=== PATIENT | male | born 2000 | race Caucasian/White ===

== ENCOUNTER 2021-05-26 18:41 | Emergency (ER) | payer OTHER ==
[~2021-05-26] VITALS: Ht 185.4 cm; Wt 77.1 kg
[2021-05-26 18:55] VITALS: BP 129/93
[2021-05-26] MEDS ORDERED: IBUP-1780 PO (19:21)
[2021-05-26] MEDS ORDERED: FAMO-119 PO (19:21)
--- NOTE | 2021-05-26 19:21 | ED Upper Extremity ---
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 He had UCL surgery in November and currently is not pitching. He continues to have ulnar nerve issues where he gets pain and xqsi-uwk-nveolig down his arm. Is supposed to have surgery where they move his ulnar nerve because they believe is entrapped. He believes the surgery will be in the next couple weeks scheduled. He was bending his arm and felt a pop for his ulnar nerve moved and he had immediate the needles down his arm. Presented to an urgent care and they referred him here. He is denying any other acute complaints. Has not had any medications today. Allergies and Home Medications Allergies Coded Allergies: No Known Drug Allergies (Unverified , 05/26/21) Patient Home Medication List Home Medication List Reviewed: Yes Review of Systems Constitutional: No chills EENTM: No blurred vision Respiratory: no symptoms reported Cardiovascular: no symptoms reported Gastrointestinal: no symptoms reported Genitourinary: no symptoms reported Musculoskeletal: muscle pain Skin: no symptoms reported Psychiatric/Neurological: Other (Paresthesias down the right ulnar side of his arm) All Other Systems Reviewed Negative Unless Noted: Yes Past Lukeahy-Svfjjj-Cbsrhi Hx Patient Social History Tobacco Use?: No Use of E-Cig and/or Vaping dev: No Substance use?: No Alcohol Use?: Yes Alcohol Frequency: Once in a while Pt feels they are or have been: No Past Medical History Surgeries: Yes (Right elbow UCL repair) Physical Exam Vital Signs Capillary Refill : Height, Weight, BMI Height: '" Weight: lbs. oz. kg; BMI Method: General Appearance: WD/WN, no apparent distress HEENT: PERRL/EOMI, normal ENT inspection, pharynx normal Neck: non-tender, full range of motion, supple, normal inspection Cardiovascular: regular rate, rhythm, no edema, no murmur Respiratory: chest non-tender, lungs clear, normal breath sounds, no respiratory distress, no accessory muscle use Gastrointestinal: normal bowel sounds, non tender, soft; No distended, No guarding, No rebound Back: normal inspection Shoulder: normal inspection, non-tender, no evidence of injury, normal ROM Elbow/Forearm: normal inspection, no evidence of injury, normal ROM, soft tissue tenderness (Tender along the UCL with a positive Tinel tap along the ulnar nerve at the elbow, normal distal sensation and motor exam regarding the radial, median, ulnar nerves, normal distal capillary refill and distal pulses) Neurologic/Tendon: normal sensation, normal motor functions, normal tendon functions Neurologic/Psychiatric: no motor/sensory deficits, alert, normal mood/affect Skin: normal color, warm/dry Lymphatic: no adenopathy Progress/Results/Core Measures Progress Progress Note : Progress Note 21-year-old male with above history coming in due to right elbow discomfort radiating down his arm. ABCs were intact and vitals stable on presentation. Clinically he has an ulnar nerve that is likely entrapped versus hit his moving and causing symptoms since his UCL surgery which is not uncommon. He has surgery coming up to move his ulnar nerve to help with the symptoms. He has neurovascularly intact and has no emergencies at this time. He has had no new trauma. We will give him ibuprofen for pain control. He was then discharged home in stable condition with strict return precautions. Departure Impression Primary Impression: Ulnar nerve entrapment at elbow Qualified Codes: G56.21 - Lesion of ulnar nerve, right upper limb Disposition: HOME, SELF-CARE Condition: Stable Departure-Patient Inst. Decision time for Depature: 19:19 Patient Instructions: Cubital Tunnel Syndrome (DC) Add. Discharge Instructions: He will take an anti-inflammatory that I prescribed for the next couple weeks. Follow-up with your surgeon for the definitive management of your ulnar nerve disease. It is not uncommon for you to have tingling and numbness with this disease going down the arm. This should come and go. Scripts Famotidine (Pepcid) 20 Mg Tablet 20 MG PO BID for 14 Days, #28 TAB Prov: ERICK SALGADO MD 05/26/21 Ibuprofen (Ibuprofen) 800 Mg Tablet 800 MG PO Q8H for 14 Days, #42 TAB 0 Refills Prov: ERICK SALGADO MD 05/26/21 Work/School Note: School/Childcare Release Date Seen in the Emergency Department: May 26, 2021 Time Dismissed from Emergency Department: 19:21 Return to School: May 27, 2021 Restrictions: No Restrictions ERICK SALGADO MD May 26, 2021 19:21
[2021-05-26] MEDS ORDERED: IBUPROFEN 800 MG (MOTRIN) TAB PO ONE (19:30)
[2021-05-26] MEDS ORDERED: GABAPENTIN 300 MG (NEURONTIN) CAP PO ONE (19:30)
== END 2021-05-26 19:28 | disposition home or self-care (01) ==
LOC: ER 18:43
DX: G56.21 Lesion of ulnar nerve, right upper limb (principal)
CPT/HCPCS: 99283